=== PATIENT | female | born 2005 | race Two or more races ===

== ENCOUNTER 2024-08-13 17:24 | Inpatient (IN) | payer MEDICAID, SELFPAY ==
[2024-08-13] VITALS (10 sets, daily range): BP systolic 80–128; BP diastolic 45–76; PULSE 85–116; RESP 16–100; TEMP 36.8; O2SAT 97–98
[2024-08-13 18:09] LABS: ROM Kit Lot # 57807112
[2024-08-13 18:10] LABS: ROM Swab Mixed By: WORMR; Rupture of Fetal Membranes Positive (Negative); Swb Mxed in Solvent 1 min? Yes
--- NOTE | 2024-08-13 18:53 | XR_ITS ---
Examination: examination TECHNIQUE: Limited transabdominal sonographic images pelvis Date and time: August 13, 2024 1921 hours INDICATIONS: Labor evaluation, unknown weight FINDINGS: Viable intrauterine gestation cephalic presentation spine maternal left Cardiac motion 140 BPM Estimated weight 3785 g Estimated age 29 weeks 4 days IMPRESSION: Viable intrauterine gestation cephalic presentation Estimated weight 3785 g
--- NOTE | 2024-08-13 19:26 | PD.LDHP ---
Documentation for date of: 08/13/24 OB Labor/Induct. HPI History of Present Illness Chief complaint: 18 y/o 40w 2d presents to L&D with SROM at 1 cm vertex : 1 Para: 0 Term pregnancies: 0 pregnancies: 0 Living children: 0 History of Abortions: Spontaneous and Elective: 0 History of Vaginal deliveries: 0 History of sections: No History of : No KERRY: 08/11/24 Gestational Age (weeks): 40 Gestational Age (days): 2 History of present illness: 18 y/o 40w 2d presents to L&D with SROM at 1 cm vertex per RN exam. GBS is neg. Rubella Non-immune. has been uncomplicated. EFW 3800g History of Present Dating criteria: based on 1st trimester US only Adequate Care: Yes Ultrasounds: normal 1st trimester US and normal mid trimester US Obstetrical complications: none Medical complications: none Labs Maternal Blood Type: O Pos Labs: Negative: RPR, Hepatitis B, Rubella Titre, HIV, Chlamydia, Gonorrhea and Group Beta Strep and Unknown: Herpes Type 1, Herpes Type 2 and Covid-19 Review of Systems Review of Systems Systems Reviewed: All systems reviewed, normal except as documented Past Medical History Surgical History SURGICAL: Negative Section Meds Home Medications and Allergies Home Medications ?Medication ?Instructions ?Recorded ?Confirmed ?Type vits no.130-ferrous fum 1 tab PO QDAY 08/14/24 08/14/24 History 27 mg iron-folic acid 800 mcg tablet ( Vitamin) Allergies Allergy/AdvReac Type Severity Reaction Status Date / Time No Known Allergies Allergy Verified 08/13/24 18:59 OB Exam Physical Exam Vital signs: Temp Pulse Resp BP Pulse Ox 98.3 F 100 16 128/75 97 08/13/24 17:24 08/13/24 17:24 08/13/24 17:24 08/13/24 17:24 08/13/24 17:53 Constitutional Constitutional: moderate distress (secondary to painful contractions) Routine HEENT Exam Head: Present normocephalic and atraumatic Eye: Present EOMI and PERRL ENT: Present mucous membranes moist Routine Neck Exam Neck: Present full ROM Routine Respiratory Exam Respiratory: Absent respiratory distress Routine Cardiovascular Exam Cardiovascular: Present RRR Routine Abdominal Exam Abdominal: Present soft Comments: Gravid uterus EFW 3800g Routine Exam External: Present normal urethra appearance; Absent lesions Detailed Labor and Delivery Exam Dilation (cm): 1 Effacement (%): 70 Cervix position: posterior station: -3 Consistency: soft Presentation: Vertex Membranes: ruptured Amniotic fluid: clear Baseline heart rate: 130 monitor accelerations: 15x15 monitor decelerations: None intermediate frame tender variability: Moderate (11-25) Contraction frequency (min): 2-4 Contraction duration (sec): 40-60 Tachysystole: No Contraction intensity: Mild Routine Extremities Exam Extremities: Present full ROM Routine Back/Spine/Pelvis Exam Back/Spine: Present full ROM Routine Skin Exam Skin: Present intact, dry and warm Routine Neurological Exam Neurological: Present alert, oriented X3 and CN II-XII intact Routine Psychiatric Exam Psychiatric: Present normal affect and normal thought process OB Results Labs 08/13/24 19:30 OB Assessment & Plan Assessment and Plan (1) Normal labor: Status: Acute (2) 40 weeks gestation of : Status: Acute (3) Rubella non-immune status, antepartum: Status: Acute Additional Plan Induction method: none Plan: augmentation, anticipate NVD and consult prn Additional Plan Comment: Routine admit orders Consult anesthesia for an epidural Continuous EFM
[2024-08-13] MEDS: RINGERS LACTATED 1000 ML 1,000 ML 100 ML IV (20:20)
[2024-08-13] MEDS: Ampicillin Inj 2,000 MG in SODIUM CHLORIDE 0.9% (POP) 100 ML 200 MG IV (20:21)
[2024-08-13 20:41] LABS: Basophils % (Auto) 0 % (0-2.5); Eosinophils % (Auto) 0 % (0-10); Hematocrit 34.6 % (36.0-46.0); Hemoglobin 11.6 g/dL (12.0-16.0); Immature Granulocytes % (Auto) 1 % (0-0); Immature Granulocytes Auto 0.06 Thou/mm3 (0.00-0.00); Lymphocytes # (Auto) 1.4 Thou/mm3 (1.0-5.0); Lymphocytes % (Auto) 14 % (10-50); Mean Corpuscular HGB Conc 33.5 g/dl (31.0-37.0); Mean Corpuscular Hemoglobin 29.3 pg (25.0-35.0); Mean Corpuscular Volume 87 fL (80-100); Monocytes # (Auto) 0.8 Thou/mm3 (0.0-0.8); Monocytes % (Auto) 8 % (0-12); Neutrophils # (Auto) 7.4 Thou/mm3 (1.8-7.7); Neutrophils % (Auto) 77 % (37-80); Nucleated Red Blood Cell % 0 /100 WBC (0); Platelet Count 200 Thou/mm3 (140-440); RDW Standard Deviation 46.7 fL (36.4-46.3); Red Blood Count 3.96 Miln/mm3 (4.00-5.20); White Blood Count 9.6 Thou/mm3 (4.5-11.0)
[2024-08-13 21:35] LABS: Syphilis Nonreactive (Nonreactive)
[2024-08-14] VITALS (111 sets, daily range): BP systolic 86–126; BP diastolic 48–72; PULSE 71–121; RESP 16–20; TEMP 36.6–37.5; O2SAT 87–100
[2024-08-14] MEDS: MISOPROSTOL 50 mCg TABLET PO ×4 (00:39→14:22)
[2024-08-14] MEDS: Ampicillin Inj 2,000 MG in SODIUM CHLORIDE 0.9% (POP) 100 ML 200 MG IV ×3 (07:56→20:03)
[2024-08-14] MEDS: GENTAMICIN/NS 100 MG IVPB 100 MG/100 ML BAG 200 MG IV ×2 (08:38→09:45)
--- NOTE | 2024-08-14 08:48 | PD.LDPN ---
Documentation for date of: 08/14/24 OB Labor Progress Note Pain Control Comments: Fentanyl Pelvic Exam Dilation (cm): 1.5 Effacement (%): 50 station: -3 Amniotic membrane status: Leaking Contractions Monitor mode: External Contraction frequency: 1-4 Contraction intensity: Moderate Status status: Category l Assessment and Plan Comments: Prolonged rupture of membranes at term greater than 24 hours without chorioamnionitis Continue cervical ripening followed by Pitocin induction Anticipate Amp/Gentamycin to prevent chorioamniontis.
[2024-08-14] MEDS: GENTAMICIN/NS 120 MG IVPB 120 MG/100 ML BAG 200 MG IV (10:21)
[2024-08-14] MEDS: fentaNYL CIT INJ 50 mCg/ML AMP 2ML 100 MCG IV ×3 (12:57→20:37)
[2024-08-14] MEDS: RINGERS LACTATED 1000 ML 1,000 ML 100 ML IV ×3 (13:25→23:42)
[2024-08-14] MEDS: ONDANSETRON INJ 2 MG/ML INJ 2 ML 4 MG IV (15:15)
--- NOTE | 2024-08-14 16:51 | PC.NURSE ---
1638 Labile BP noted, 250cc bolus of LR started, patient on right side
--- NOTE | 2024-08-14 18:30 | PC.NURSE ---
RN spoke with Dr. Llanos who reviewed the strip, Per Dr. Llanos OK to start pitocin. I did inform him that labile blood pressure was due to patient receiving IV fentanyl about about an hour prior. BP recheck WNL, patient afebrile. Unable to start pitocin due to no RN willing to co-sign. RN will pass on to manager night nurse to start pitocin. IV lines labeled with pink Oxytocin stickers, port piggybacked into mainline, channel with pitocin is off.
--- NOTE | 2024-08-14 19:05 | PC.NURSE ---
late entry: [address] Llanos who reviewed the strip and wanted IV pitocin started. RN informed him that labile blood pressure was due to patient having IV fentanyl for pain and patient was sleeping. I did inform him that Patient received a bolus of LR 250cc and her recheck for BP was within normal limits. patient afebrile. RN unable to start pitocin at the time due to no RN willing to cosign.
[2024-08-14] MEDS: OXYTOCIN in NS 30 units 30 UNIT/500 ML BAG IV (19:06)
[2024-08-14 19:08] LABS: Gentamicin, Random 0.7 mcg/mL (4.0-10.0)
--- NOTE | 2024-08-14 19:09 | PC.NURSE ---
spoke with Dr. Llanos regarding labile BP, patient recently received fentanyl. Recheck normal
[2024-08-15] VITALS (303 sets, daily range): BP systolic 87–146; BP diastolic 50–86; PULSE 66–144; RESP 12–19; TEMP 36.6–38.9; O2SAT 72–100
[2024-08-15] MEDS: Ampicillin Inj 2,000 MG in SODIUM CHLORIDE 0.9% (POP) 100 ML 200 MG IV ×2 (02:08→08:00)
[2024-08-15] MEDS: fentaNYL CIT INJ 50 mCg/ML AMP 2ML 100 MCG IV (04:01)
[2024-08-15] MEDS: ONDANSETRON INJ 2 MG/ML INJ 2 ML 4 MG IV (05:34)
[2024-08-15] MEDS: RINGERS LACTATED 1000 ML 1,000 ML 100 ML IV (06:10)
[2024-08-15] MEDS: GENTAMICIN/NS 100 MG IVPB 100 MG/100 ML BAG 200 MG IV (09:12)
[2024-08-15] MEDS: GENTAMICIN/NS 120 MG IVPB 120 MG/100 ML BAG 200 MG IV (09:46)
[2024-08-15] MEDS: MINERAL OIL 30 ML UDC TOP (11:10)
[2024-08-15] MEDS: TRANEXAMIC ACID 1,000 MG IVPB 1,000 MG/100 ML BAG 200 MG IV (11:20)
[2024-08-15] MEDS: METHYLERGONOVINE INJ 0.2 MG/ML VIAL IM (11:32)
[2024-08-15] MEDS: OXYTOCIN in NS 20 units 20 UNIT/1,000 ML BAG 125 UNIT IV (11:32)
[2024-08-15] MEDS: OXYTOCIN INJ 10 UNIT/ML VIAL IM (11:32)
[2024-08-15] MEDS: MISOPROSTOL 200 mCg TABLET 800 MCG PR (11:34)
[2024-08-15] MEDS: BENZO/LANO/ALOE (Dermoplast) 60 GM CAN 1 SPRAY TOP (11:35)
--- NOTE | 2024-08-15 11:44 | PD.LDDELS ---
Vacuum Assisted Delivery General Patient Counseled by physician:: Yes Informed consent to patient:: Yes Estimated weight:: 3628.739 g Cervical dilation:: fully dilated station:: +3 position:: KARLY Molding:: No Caput:: Yes Vacuum Application Vacuum type:: Mityvac Vacuum application:: flexing median Total vacuum time (min):: 30 Cup Placement Flexion point identified:: Yes Cup approp. 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 operator Data (Paige) Data Hx Section: No : 1 Term: 0 : 0 Livin Abortions: Spontaneous & Theraputic: 0 Delivery Data (Paige) Labor Data Initiation of labor: Augmentation Induction/Augmentation Agent: Cytotec-PO and Pitocin ROM date: 08/15/24 ROM time: 07:44 Amniotic membrane rupture type: Artificial Amniotic fluid description: Light Meconium Delivery Data Onset of labor date: 08/15/24 Onset of labor time: 07:44 Complete dilation date: 08/15/24 Complete dilation time: 11:00 delivery date: 08/15/24 [place] delivery time: 11:17 Placenta delivery date: 08/15/24 Placenta delivery time: 11:20 Stage 1 total time: Labor - Stage 1 Duration 3 hours and 16 minutes Delivered by: Juan Mariann Delivery Method Delivery method: Operative Vaginal Delivery Presentation: Vertex position: KARLY Anesthesia Type Anesthesia Type: Epidural Delivery Room Medications Delivery room medications: Methergine 0.2 mg IM and Cytotec 800 VA Placenta Placenta delivery description: Manual Removal Placenta Disposition: Sent to Pathology Cord blood sent to lab: Yes Episiotomy Episiotomy description: Right Mediolateral Umbilical Cord cord description: 3 Vessels [place] Data (Paige) Data 's gender: Female
[2024-08-15] MEDS: ACETAMINOPHEN IVPB 1,000 MG/100 ML VIAL 250 MG IV (12:18)
[2024-08-15] MEDS: IBUPROFEN TAB 400 MG TABLET 800 MG PO (13:00)
[2024-08-15] MEDS: CLINDAMYCIN 900MG IVPB 900 MG in PRE-MIXED 1 BAG 50 MG IV (13:00)
--- NOTE | 2024-08-15 13:23 | PC.NURSE ---
Dr. Waite called made aware of pt still having an elevated temp of 101.8. Per MD do a maternal sepsis workup, stop triple atb now and start Zosyn 3.375 Q8HR, given 1.5 L N/S bolus, and tylenol iv 1000mg may be given Q6HR PRN.
--- NOTE | 2024-08-15 13:27 | XR_ITS ---
Examination: Abdomen AP single view Technique: AP portable supine abdomen, single view Exam date and time: August 15, 2024 1405 hours INDICATIONS: Missing instrument today FINDINGS: Mild ileus pattern No opaque foreign body is depicted Film does not include the entire lower pelvis IMPRESSION: No opaque foreign body depicted
--- NOTE | 2024-08-15 13:29 | XR_ITS ---
Examination: AP chest single view Technique one AP portable semiupright chest single view Date and time: August 15, 2024 1404 hours INDICATIONS: Sepsis alert cough and fever today. FINDINGS: Normal heart size No pneumonia identified The osseous structures are intact IMPRESSION: No pneumonia identified
[2024-08-15] MEDS: SODIUM CHLORIDE 0.9% 1000 ML 1,000 ML 999 ML IV (13:40)
[2024-08-15 14:07] LABS: Collection Type, Urine Catheter
[2024-08-15] MEDS: PIPER/TAZO 3.375 GM PREMIX 3.375 GM/50 ML BAG IV ×2 (14:08→21:50)
[2024-08-15 14:09] LABS: Basophils % (Auto) 0 % (0-2.5); Eosinophils % (Auto) 0 % (0-10); Hematocrit 31.7 % (36.0-46.0); Hemoglobin 10.7 g/dL (12.0-16.0); Immature Granulocytes % (Auto) 1 % (0-0); Immature Granulocytes Auto 0.15 Thou/mm3 (0.00-0.00); Lymphocytes # (Auto) 0.8 Thou/mm3 (1.0-5.0); Lymphocytes % (Auto) 6 % (10-50); Mean Corpuscular HGB Conc 33.8 g/dl (31.0-37.0); Mean Corpuscular Hemoglobin 29.2 pg (25.0-35.0); Mean Corpuscular Volume 86 fL (80-100); Monocytes # (Auto) 0.9 Thou/mm3 (0.0-0.8); Monocytes % (Auto) 6 % (0-12); Neutrophils # (Auto) 12.3 Thou/mm3 (1.8-7.7); Neutrophils % (Auto) 87 % (37-80); Nucleated Red Blood Cell % 0 /100 WBC (0); Platelet Count 158 Thou/mm3 (140-440); Red Blood Count 3.67 Miln/mm3 (4.00-5.20); White Blood Count 14.2 Thou/mm3 (4.5-11.0)
[2024-08-15 14:13] LABS: Lactate (Lactic Acid) 4.6 mMol/L (0.4-2.0)
[2024-08-15 14:23] LABS: Partial Thromboplastin Time 29.9 Seconds (22.0-36.0); Prothrombin Time 10.8 Seconds (9.0-12.2)
[2024-08-15 14:28] LABS: B-Type Natriuretic Peptide 516 pg/mL (0-100)
[2024-08-15 14:38] LABS: Alanine Aminotransferase 10 U/L (10-49); Albumin/Globulin Ratio 1.4 (1.2-2.2); Alkaline Phosphatase 181 U/L (46-116); Anion Gap 13 (7-16); Aspartate Amino Transferase 21 U/L (0-34); BUN/Creatinine Ratio 11 Ratio (12-20); Bilirubin,Total 0.4 mg/dL (0.3-1.2); Blood Urea Nitrogen 8 mg/dL (9-23); Calcium 7.6 mg/dL (8.3-10.6); Calcium (Corrected) 8.4 mg/dL (8.5-10.1); Carbon Dioxide 17.4 mMol/L (20.0-31.0); Chloride 108 mMol/L (98-107); Creatinine (Component) 0.7 mg/dL (0.6-1.3); Globulin 2.2 gm/dL (2.3-3.5); Glucose 147 mg/dL (74-106); Osmolality,Calculated 276 (275-295); Potassium 3.3 mMol/L (3.4-5.1); Sodium 138 mMol/L (136-145); Total Protein 5.2 gm/dL (5.7-8.2); Troponin I < 0.020 ng/mL (0.0-0.045); eGFR > 60 See Note
[2024-08-15 14:55] LABS: Bilirubin,Urine Negative (Negative); Blood,Urine 3+ (Negative); Clarity,Urine Clear (Clear/Hazy); Color,Urine Lt-Yellow (Lt Yel-Yel); Glucose, Urine Negative (Negative); Ketones,Urine 2+ (Negative); Leukocyte Esterase,Urine Positive (Negative); Nitrite,Urine Negative (Negative); PH,Urine 6.5 (5.0-7.0); Protein,Urine 1+ (Neg - Trace); Specific Gravity,Urine 1.015 (1.001-1.035); Urobilinogen,Urine Negative mg/dL (0.0-1.0)
--- NOTE | 2024-08-15 15:08 | PC.NURSE ---
Dr. Waite called, lab results reported to MD ADA made aware that temp is still elevated at 101.8 axillary abd 101.7 oral, per MD pt to remain NPO, he will re-assess pt at 1800 and fever is still present pt will be taken for D&C.
--- NOTE | 2024-08-15 15:54 | PC.NURSE ---
Dr. Waite called to beside to assess pt due to bleeding with bakri balloon, per MD call team in for D&C.
--- NOTE | 2024-08-15 16:30 | PC.NURSE ---
Dr. Waite at bedside bakri balloon removed.
[2024-08-15 16:37] LABS: Bacteria,Urine Rare; RBC,Urine 150 /hpf (0-3); Squamous Epithelial Cell,Urine 1 /hpf (0-5); WBC,Urine 2 /hpf (0-5)
[2024-08-15 17:04] LABS: Reflex Lactate? Y
--- NOTE | 2024-08-15 17:49 | ESOP_ITS ---
Operative Note - ASSISTANT PRINTER FLOOR COVERING Procedure Date of procedure: 08/15/24 Procedure Performed: Examined anesthesia, removal of retained placental fragment Correction of uterine inversion Dilatation and curettage Replacement of Bakri balloon and vaginal packing Indication: 18-year-old G1, P1 with slow hemorrhage status post vacuum-assisted vaginal delivery and prolonged rupture of membranes with chorioamnionitis Anesthesia type: General Procedure description: Informed consent was obtained and the patient was taken to the operating room. Identity was confirmed by double identifiers and she was placed on the operating table. General anesthesia was administered and patient was positioned in the dorsal lithotomy position. The perineum was prepped in the usual sterile fashion and sterile drapes were applied. A timeout procedure was completed. First a detailed exam under anesthesia was performed. The laceration repair was inspected and noted to be intact. Now a self-retaining speculum was introduced into the vagina and the anterior and posterior lips of the cervix were grasped using ring forceps. The uterine inversion was identified at this time and rep laced manually using gentle traction using the surgeon's hand. Once the inversion was corrected the cervix was held under caudal traction and a gentle curettage was performed to obtain small amounts of clots and a piece of placental tissue. Now, a Bakri balloon was introduced into the uterine cavity using a curved ring forcep as a guide until the fundus was encountered. The balloon was inflated using 400 cc of sterile water. Now vaginal packing was also introduced. After the procedure was completed small laceration was noted on the lateral vaginal wall which was noted to be bleeding briskly. A 2-0 [address] was used to place a [id number] suture to achieve hemostasis. All instruments were now withdrawn. The perineum was thoroughly cleaned. The patient was taken out of lithotomy p osition. General anesthesia was reversed and she was transferred to the recovery room in a stable and awake condition. Patient tolerated the entire procedure well. No complications were encountered. All instrument, sponge and lap counts were correct x 2. Estimated blood loss (ml): 100 Complications: none Surgical staff Operation Date: 08/15/24 17:15 <No data on this case meets the specified criteria> Diagnosis Discharge Diagnosis (1) Rubella non-immune status, antepartum: Status: Acute (2) 40 weeks gestation of : Status: Acute (3) hemorrhage associated with low clotting factor: Status: Acute (4) Normal labor: Status: Acute (5) Uterine inversion: Status: Acute Problem List Completed Was Problem List Reviewed/Reconciled?: Yes
--- NOTE | 2024-08-15 17:56 | SUR.PHASEI ---
1756: pt received from OR via bed. received report from KATHIE Vang and HUMBERTO Marino. pt sleeping. no s/s of resp. distress or discomfort. no s/s of pain of discomfort. torres cath in place with clear yellow color, no odor. bakri balloon in place, no drainage noted. vaginal packing in place, no bleeding noted.
--- NOTE | 2024-08-15 18:19 | SUR.PHASEI ---
1819: pt awake and alert. denies any pain or discomfort. no s/s of resp. distress or discomfort. noted small amount of blood from bakri line.
--- NOTE | 2024-08-15 18:31 | SUR.PHASEI ---
183: report given to HUMBERTO Vuong.
[2024-08-15 18:41] LABS: Lactic Acid, 3 HR 1.8 mMol/L (0.4-2.0)
--- NOTE | 2024-08-15 18:43 | SUR.PHASEI ---
1843: pt transfer to room 464 via bed. pt alert and oriented. denies any pain or discomfort. no s/s of resp. distress or discomfort. torres cath in place with pale yellow color urine, no odor noted. bakri balloon in place with small amount of blood from bakri line. vaginal packing in place, no bleeding noted.
[2024-08-15] MEDS: RINGERS LACTATED 1000 ML 1,000 ML 125 ML IV (19:40)
[2024-08-15 21:10] LABS: Basophils % (Auto) 0 % (0-2.5); Eosinophils % (Auto) 0 % (0-10); Hematocrit 31.2 % (36.0-46.0); Hemoglobin 10.8 g/dL (12.0-16.0); Immature Granulocytes % (Auto) 1 % (0-0); Lymphocytes # (Auto) 0.9 Thou/mm3 (1.0-5.0); Lymphocytes % (Auto) 5 % (10-50); Mean Corpuscular HGB Conc 34.6 g/dl (31.0-37.0); Mean Corpuscular Hemoglobin 29.7 pg (25.0-35.0); Mean Corpuscular Volume 86 fL (80-100); Monocytes # (Auto) 0.8 Thou/mm3 (0.0-0.8); Monocytes % (Auto) 5 % (0-12); Neutrophils # (Auto) 15.5 Thou/mm3 (1.8-7.7); Neutrophils % (Auto) 89 % (37-80); Nucleated Red Blood Cell % 0 /100 WBC (0); Platelet Count 217 Thou/mm3 (140-440); RDW Standard Deviation 46.2 fL (36.4-46.3); Red Blood Count 3.64 Miln/mm3 (4.00-5.20); White Blood Count 17.5 Thou/mm3 (4.5-11.0)
[2024-08-16] VITALS (9 sets, daily range): BP systolic 101–109; BP diastolic 61–74; PULSE 69–102; RESP 16–18; TEMP 36.5–36.9; O2SAT 95–97
[2024-08-16] MEDS: IBUPROFEN TAB 400 MG TABLET 800 MG PO ×2 (03:42→14:39)
[2024-08-16] MEDS: METHYLERGONOVINE 0.2 MG TABLET PO ×4 (03:42→21:52)
[2024-08-16] MEDS: PIPER/TAZO 3.375 GM PREMIX 3.375 GM/50 ML BAG IV ×2 (05:42→14:30)
[2024-08-16 06:45] LABS: Basophils % (Auto) 0 % (0-2.5); Eosinophils % (Auto) 0 % (0-10); Hematocrit 27.8 % (36.0-46.0); Hemoglobin 9.4 g/dL (12.0-16.0); Immature Granulocytes % (Auto) 1 % (0-0); Immature Granulocytes Auto 0.11 Thou/mm3 (0.00-0.00); Lymphocytes # (Auto) 1.2 Thou/mm3 (1.0-5.0); Lymphocytes % (Auto) 7 % (10-50); Mean Corpuscular HGB Conc 33.8 g/dl (31.0-37.0); Mean Corpuscular Hemoglobin 29.5 pg (25.0-35.0); Mean Corpuscular Volume 87 fL (80-100); Monocytes # (Auto) 0.9 Thou/mm3 (0.0-0.8); Monocytes % (Auto) 5 % (0-12); Neutrophils # (Auto) 14.8 Thou/mm3 (1.8-7.7); Neutrophils % (Auto) 87 % (37-80); Nucleated Red Blood Cell % 0 /100 WBC (0); Platelet Count 179 Thou/mm3 (140-440); RDW Standard Deviation 47.4 fL (36.4-46.3); Red Blood Count 3.19 Miln/mm3 (4.00-5.20)
[2024-08-16] MEDS: DOCUSATE SOD 100 MG CAPSULE PO (09:43)
--- NOTE | 2024-08-16 09:59 | ESPR_ITS ---
Subjective Subjective Interval history: Patient doing well overall. Minimal discomfort. Bakri balloon, vaginal packing, and torres catheter in place. Tolerating regular diet without nausea/vomiting. No fevers/chills, no CP/SOB. Exam Vital Signs Temp Pulse Resp BP Pulse Ox O2 Del Method O2 Flow Rate 98.1 F 69 16 109/63 95 Room Air 3 08/16/24 03:20 08/16/24 09:43 08/16/24 03:20 08/16/24 09:43 08/16/24 03:20 08/16/24 03:20 08/15/24 18:15 Narrative Exam General: well developed, well nourished, no acute distress, conversant Cardiac: normal heart rate Lungs: breathing without distress Abdomen: soft, post-gravid, non-tender, no rebound or guarding, Fundus firm at u-3cm. Vaginal packing removed. Tubing of Bakri balloon cut and fluid released into a bag. Bakri then fully deflated and was easily removed. Torres catheter deflated and removed from bladder. Scant vaginal bleeding noted after. Patient tolerated well. Extremities: no pain with palpation of calves, trace edema of BLE Objective Labs 08/16/24 04:45 08/15/24 13:54 Labs: Laboratory Results - last 24 hr 08/13/24 08/15/24 08/15/24 19:30 13:45 13:54 WBC 14.2 H D RBC 3.67 L Hgb 10.7 L Hct 31.7 L MCV 86 MCH 29.2 MCHC 33.8 RDW Std Deviation 47.0 H Plt Count 158 D Neut % (Auto) 87 H Lymph % (Auto) 6 L [place] % (Auto) 6 Eos % (Auto) 0 Baso % (Auto) 0 Neut # (Auto) 12.3 H Lymph # (Auto) 0.8 L [place] # (Auto) 0.9 H Eos # (Auto) 0.0 Baso # (Auto) 0.0 Immature Gran # (Auto) 0.15 H Absolute Nucleated RBC 0.00 Immature Gran % 1 H Nucleated RBC % 0 PT 10.8 INR 1.0 APTT 29.9 Sodium 138 Potassium 3.3 L Chloride 108 H Carbon Dioxide 17.4 L Anion Gap 13 BUN 8 L Creatinine 0.7 Estim Creat Clear Calc 127.0 eGFR > 60 BUN/Creatinine Ratio 11 L Glucose 147 H Calculated Osmolality 276 Lactic Acid 4.6 H* Calcium 7.6 L Corrected Calcium 8.4 L Total Bilirubin 0.4 AST 21 ALT 10 Alkaline Phosphatase 181 H Troponin I < 0.020 B-Natriuretic Peptide 516 H* Total Protein 5.2 L Albumin 3.0 L Globulin 2.2 L Albumin/Globulin Ratio 1.4 Ur Collection Type Catheter Urine Color Lt-Yellow Urine Clarity Clear Urine pH 6.5 Ur Specific [place] 1.015 Urine Protein 1+ A Urine Glucose (UA) Negative Urine Ketones 2+ A Urine Blood 3+ A Urine Nitrite Negative Urine Bilirubin Negative Urine Urobilinogen (Auto) Negative Ur Leukocyte Esterase Positive Urine RBC 150 H Urine WBC 2 Ur Squamous Epith Cells 1 Urine Bacteria Rare Blood Type O Positive Antibody Screen NEGATIVE Crossmatch See Detail Blood Bank Wristband ID Yes 08/15/24 08/15/24 08/16/24 18:27 20:31 04:45 WBC 17.5 H 17.0 H RBC 3.64 L 3.19 L Hgb 10.8 L 9.4 L Hct 31.2 L 27.8 L MCV 86 87 MCH 29.7 29.5 MCHC 34.6 33.8 RDW Std Deviation 46.2 47.4 H Plt Count 217 D 179 D Neut % (Auto) 89 H 87 H Lymph % (Auto) 5 L 7 L [place] % (Auto) 5 5 Eos % (Auto) 0 0 Baso % (Auto) 0 0 Neut # (Auto) 15.5 H 14.8 H Lymph # (Auto) 0.9 L 1.2 [place] # (Auto) 0.8 0.9 H Eos # (Auto) 0.0 0.0 Baso # (Auto) 0.0 0.0 Immature Gran # (Auto) 0.20 H 0.11 H Absolute Nucleated RBC 0.00 0.00 Immature Gran % 1 H 1 H Nucleated RBC % 0 0 PT INR APTT Sodium Potassium Chloride Carbon Dioxide Anion Gap BUN Creatinine Estim Creat Clear Calc eGFR BUN/Creatinine Ratio Glucose Calculated Osmolality Lactic Acid 1.8 Calcium Corrected Calcium Total Bilirubin AST ALT Alkaline Phosphatase Troponin I B-Natriuretic Peptide Total Protein Albumin Globulin Albumin/Globulin Ratio Ur Collection Type Urine Color Urine Clarity Urine pH Ur Specific [place] Urine Protein Urine Glucose (UA) Urine Ketones Urine Blood Urine Nitrite Urine Bilirubin Urine Urobilinogen (Auto) Ur Leukocyte Esterase Urine RBC Urine WBC Ur Squamous Epith Cells Urine Bacteria Blood Type Antibody Screen Crossmatch Blood Bank Wristband ID Assessment & Plan Problem List (1) hemorrhage: Status: Acute Assessment and plan: Dottie is a 18yo G1 nowP1 s/p VAVD after presenting with PROM at 40w2d, doing well on PPD 1. She had 800ml PPH in the delivery room initially and Bakri was attempted but expulsed. She was taken to OR ultimately where a uterine inversion was reduced, she had D&C and placement of Bakri balloon with vaginal packing. Total ebl from delivery and OR was 1000ml. She had delivered at 1117 on 08/15, had a fever up to 101F after. Last fever at 1500 on 08/15 after zosyn was initiated. Hgb 9.4 from 10.8. Normal chest x-ray, blood culture pending (from 1350), urine culture positive for gram positive cocci. Uncomplicated removal of Bakri balloon, vaginal packing and torres catheter this morning with scant vaginal bleeding after. Vitals wnl, benign exam. Hemodynamically stable. Plan: -Continue routine care -Regular diet -Continue to observe lochia now that Bakri is removed -Due to void s/p torres removal -Urine cx + for gram positive cocci, awaiting identification of organism. Continue zosyn for now, will switch to oral abx for discharge home. -Blood cx pending -Ferrous sulfate for anemia -Encourage ambulation -Anticipate discharge home tomorrow if meeting all milestones (2) Uterine inversion: Status: Acute (3) Rubella non-immune status, antepartum: Status: Acute (4) 40 weeks gestation of : Status: Acute (5) Normal labor: Status: Acute Time Spent With Patient Time: Total time spent is greater than 50% in coordination of care (as documented) at patient's floor/unit and/or counseling patient:
[2024-08-16] MEDS: BENZOCAINE/MENTHOL 1 LOZENGE PO (10:17)
[2024-08-16] MEDS: RINGERS LACTATED 1000 ML 1,000 ML 125 ML IV (11:58)
[2024-08-16] MEDS: ACETAMINOPHEN 325 MG TABLET 650 MG PO (21:38)
[2024-08-16] MEDS: cephALEXin 250 MG CAPSULE 500 MG PO (22:31)
[2024-08-17 02:00] VITALS: BP 116/78; PULSE 75; RESP 18; TEMP 36.8
[2024-08-17 05:50] VITALS: BP 103/66; PULSE 74; RESP 18; TEMP 37.2; O2SAT 98
--- NOTE | 2024-08-17 06:24 | PC.NURSE ---
[id number] social service here to see and talk with mom for her depression scale of 12.
--- NOTE | 2024-08-17 06:46 | PC.SS ---
CLOTH BOOKER, Sharmaine, met with patient [id number] to do initial assessment due to scoring a 12 on the Post Depression Screening. CLOTH BOOKER introduced herself, role in the agency, reason for visit, and discussed limits of confidentiality. Patient appeared alert and oriented to self, time, place, and situation. Patient appears stated age. Patient made good eye contact. Patient?s attitude appeared pleasant and cooperative. Patient?s behavior appeared ordinary. Patient?s mood appears ordinary. No signs of delusions or hallucinations. This is 18-year-old, , single female who presented to the hospital to deliver her daughter, Fidel. Patient confirmed her address and phone number (address: [address] [facility], [place], [place]). Patient will reside with her cousin, significant other/father of her child, Ranjith. Patient is receiving WIC, foodstamps, and disability. Patient is independent with all daily activities; she denies any DME use. Patient denied any substance use or domestic violence. Patient denied any history or current mental health illness. Patient reported that she started experiencing feelings of sadness, significantly emotional, and tearful. Patient denied any HI, SI, previous suicide attempts or psychiatric admissions. Patient reported that her significant other, Ranjith will stay with her to assist with the care of their . SW provided psychoeducation regarding baby blues and Post- Depression, as well as counseling groups [facility]. SW provided community resources: Warm Line and Crisis Line. Patient agreeable for [facility] and High Risk referrals.
[2024-08-17] MEDS: DOCUSATE SOD 100 MG CAPSULE PO (07:28)
[2024-08-17] MEDS: cephALEXin 250 MG CAPSULE 500 MG PO (07:29)
[2024-08-17] MEDS: FERROUS SULF 325 MG TABLET PO (07:33)
--- NOTE | 2024-08-17 07:40 | ESDS_ITS ---
DS: Providers Provider Date of admission: 08/13/24 18:46 Primary care physician: Physician No Primary/Family Admitting Provider: Nickie Hendricks CNM Attending Provider on Admission: Juan Waite MD Consults: 08/15/24 12:13 Referral Routine Comment: Attending Provider on DC: Lizzie Hackett MD Discharging Provider: Lizzie Hackett MD DS: Diagnosis Discharge Diagnosis (1) Normal labor: Status: Acute (2) 40 weeks gestation of : Status: Acute (3) Rubella non-immune status, antepartum: Status: Acute (4) hemorrhage: Status: Acute (5) Uterine inversion: Status: Acute (6) Anemia, : Status: Acute Problem List Completed Was Problem List Reviewed/Reconciled?: Yes Summary/Hosp Course Brief History: 18 y/o 40w 2d presents to L&D with SROM at 1 cm vertex per RN exam. GBS is neg. Rubella Non-immune. has been uncomplicated. EFW [id number] Dottie is a 18yo G1 now P1 s/p VAVD after presenting with PROM at 40w2d, doing well on PPD 2. She had 800ml PPH in the delivery room initially and Bakri was attempted but expulsed. She was taken to OR ultimately where a uterine inversion was reduced, she had D&C and placement of Bakri balloon with vaginal packing. Total ebl from delivery and OR was 1000ml. She had delivered at 1117 on 08/15, had a fever up to 101F after. Last fever at 1500 on 08/15 after zosyn was initiated. No fever since and zosyn was discontinued last night (keflex 500mg PO BID was started for GBS + urine culture). Normal chest x-ray, blood culture no growth at 24hr. Hgb 9.4 from 10.8. On am of 08/16 there was uncomplicated removal of Bakri balloon, vaginal packing and torres catheter with scant vaginal bleeding since. She is now meeting all milestones and feels ready for discharge home. She is ambulating without lightheadedness, tolerating regular diet no n/v, spontaneously voiding without issue. She has no chest pain or shortness of breath. No fevers or chills. Minimal, appropriate discomfort. Vitals normal, benign exam. Hemodynamically stable with no evidence of infection. Peripartum Data Delivery Method: Operative Vaginal Delivery Episiotomy Description: Right Mediolateral Procedures: Procedures Operation Date: 08/15/24 17:15 Actual Procedure Side Surgeon p Exam under anesthesia, correction of uterine inversion, suction dilatation and curettage, Bakri Balloon placement Juan Waite MD Status at Discharge Functional status at discharge: independent ambulation Overall status at discharge: patient is back to baseline Time Spent with Patient Time attestation: Total time spent providing and/or coordinating discharge services: Exam Vital Signs Temp Pulse Resp BP Pulse Ox O2 Del Method O2 Flow Rate 99 F 74 18 103/66 98 Room Air 3 08/17/24 05:50 08/17/24 05:50 08/17/24 05:50 08/17/24 05:50 08/17/24 05:50 08/17/24 05:50 08/15/24 18:15 Narrative Exam General: well developed, well nourished, no acute distress, conversant Cardiac: normal heart rate Lungs: breathing without distress Abdomen: soft, post-gravid, non-tender, no rebound or guarding, Fundus firm at u-3cm. Extremities: no pain with palpation of calves, trace edema of BLE Discharge Plan Plan Patient Disposition: HOME (Self Care) Patient condition on transfer: Stable Prescriptions/Referrals Prescriptions/Med Rec: New cephalexin 250 mg Capsule 500 mg PO BID 5 Days Qty: 20 0RF docusate sodium 100 mg Capsule 100 mg PO BID 10 Days Qty: 20 0RF ferrous sulfate 325 mg (65 mg iron) Tablet,Delayed Release (Dr/Ec) 325 mg PO DAILY 30 Days Qty: 30 0RF ibuprofen 800 mg tablet 800 mg PO Q8HR PRN (Reason: Pain Scale 4-6 (Moderate) 10 Days Qty: 20 0RF Continued Vitamin 27 mg iron- 800 mcg tablet 1 tab PO QDAY Referrals: No Primary/Family,Physician [Primary Care Provider] - Patient/Caregiver Discharge Instructions Discharge Activity: activity as tolerated and other Other Discharge Activity Instructions:: vaginal rest and no heavy lifting more than 10 pounds for 6 weeks Other Discharge Diet Instructions: regular diet Education Materials: Anemia, After a Vaginal , Breast Care After , : Caring for Yourself Print Language: Occitan Activity Restrictions/Additional Instructions: follow up with your obgyn in 2 weeks, call clinic for appointment Stand Alone Forms: Ni [facility]nett Info., Patient Portal Info Letter Discharge Order Discharge Orders: Discharge (Routine); Ordered 08/17/24 Ordered By: Lizzie Hackett Planned Discharge Date 08/17/24 (4) hemorrhage Qualifiers: hemorrhage type: unspecified Qualified Code(s): O72.1 - Other immediate hemorrhage
== END 2024-08-17 08:57 | disposition home or self-care (01) | DRG 542 ==
LOC: S4SX 08-15 16:20 → S4NX 08-15 17:16
PROVIDERS: Specialist; Admitting Provider Nurse Practitioner Women's Health; Visit Provider Obstetrics & Gynecology
PROC: 10E0XZZ Delivery of Products of Conception, External Approach (ICD-10-PCS; CPT 58120; principal; 2024-08-15 17:00)
DX: O48.0 Post-term pregnancy (principal); O42.02 Full-term premature rupture of membranes, onset of labor within 24 hours of rupture; Z37.0 Single live birth; Z3A.40 40 weeks gestation of pregnancy; O72.1 Other immediate postpartum hemorrhage; O77.0 Labor and delivery complicated by meconium in amniotic fluid; O90.81 Anemia of the puerperium
CPT/HCPCS: 36415; 59409; 71045; 74018; 76815; 80053; 80170; 81001; 83605; 83880; 84112; 84484; 85025; 85610; 85730; 86780; 86850; 86900; 86901; 86923; 87040; 87086; 87186; 94762; A4217; J0131; J0290; J1100; J1171; J1580; J2210; J2250; J2405; J2543; J2590; J2765; J2795; J3010; J3490; J7030; J7120; S0077; S0191; A9270; J0736; J1596